=== PATIENT | male | born 1990 | race Caucasian/White ===

== ENCOUNTER 2018-01-20 09:53 | Emergency (ER) | payer OTHER ==
[~2018-01-20] VITALS: Ht 162.6 cm; Wt 77.1 kg
[2018-01-20] MEDS ORDERED: ATENOLOL25 MG PO (11:22)
[2018-01-20] MEDS ORDERED: DICLOFENAC POTA50 MG PO (14:10)
[2018-01-20] MEDS ORDERED: MEDROLPACK PO (14:10)
== END 2018-01-20 22:20 | disposition home or self-care (01) ==
LOC: ER 09:53
DX: M54.2 Cervicalgia (principal); R42 Dizziness and giddiness

== ENCOUNTER 2018-03-20 07:43 | Emergency (ER) | payer OTHER ==
[~2018-03-20] VITALS: Ht 165.1 cm; Wt 77.1 kg
[~2018-03-20 07:43] MED LIST: ATENOLOL25 MG PO; DICLOFENAC POTA50 MG PO; MEDROLPACK PO
[2018-03-20] MEDS ORDERED: ZITHROMAX TRI-500 MG PO (10:31)
[2018-03-20] MEDS ORDERED: TUSSI PRES-B L120 M1 PO (10:31)
[2018-03-20] MEDS ORDERED: NORFLEX100MG PO (10:33)
== END 2018-03-20 10:36 | disposition home or self-care (01) ==
LOC: ER 07:43
DX: B34.9 Viral infection, unspecified (principal)

== ENCOUNTER 2018-08-03 07:26 | Outpatient (CLI) | payer OTHER ==
[~2018-08-03 07:26] MED LIST changes: +NORFLEX100MG PO; +TUSSI PRES-B L120 M1 PO; +ZITHROMAX TRI-500 MG PO
== END 2018-08-03 07:29 | disposition home or self-care (01) ==
LOC: MRI 07:26
DX: M54.2 Cervicalgia (principal); M54.12 Radiculopathy, cervical region
CPT/HCPCS: 72141

== ENCOUNTER 2018-11-06 19:55 | Inpatient (IN) | payer OTHER ==
[~2018-11-06] VITALS: Ht 152.4 cm; Wt 5.0 kg
== END 2018-11-08 11:17 | disposition home or self-care (01) | DRG 343 ==
LOC: ER 19:55 → SEC-K 11-07 04:14 → O/R 11-07 04:14 → SURG 11-07 04:14 → O/R 11-07 09:00 → SURG 11-07 13:28
PROVIDERS: ADMIT Surgery
PROC: 0DTJ4ZZ Resection of Appendix, Percutaneous Endoscopic Approach (ICD-10-PCS; principal; 2018-11-07 10:30)
DX: K35.890 Other acute appendicitis without perforation or gangrene (principal); I10 Essential (primary) hypertension

== ENCOUNTER 2021-06-09 22:22 | Emergency (ER) | payer OTHER ==
[~2021-06-09] VITALS: Ht 165.1 cm; Wt 83.9 kg
[2021-06-09] MEDS ORDERED: MAXALT10 MG (22:37)
[2021-06-09] MEDS ORDERED: [UNRECOGNIZED DRUG - OTHER] (22:37)
[2021-06-10] MEDS ORDERED: PEPCID40 MG PO (02:49)
[2021-06-10] MEDS ORDERED: DOLOGESIC-DF 51 EACH PO (02:49)
== END 2021-06-10 03:03 ==
LOC: ER 22:22
DX: G43.109 Migraine with aura, not intractable, without status migrainosus (principal); Z91.011 Allergy to milk products